=== PATIENT | male | born 1965 | race Caucasian/White ===

== ENCOUNTER 2019-01-08 11:18 | Outpatient (RCR) | payer SELFPAY | END 2019-02-06 00:01 | LOC: LAB 11:18 | DX: L02.31 Cutaneous abscess of buttock (principal) | CPT/HCPCS: 80053; 85007; 85027 ==

== ENCOUNTER 2019-10-30 10:43 | Outpatient (CLI) | payer OTHER, SELFPAY ==
--- NOTE | 2019-10-30 11:19 | XR_ITS ---
WS: [id number] HIP WITH PELVIS RIGHT TECHNIQUE: 3 views of the right hip with pelvis CLINICAL INFORMATION: R HIP PAIN COMPARISON: None. FINDINGS: Moderate degenerative arthritis right hip with joint space narrowing. Small amount of subchondral scl erosis along the superior lateral acetabulum. Normal femoral neck. No acute fractures. Visualized rig ht pubic rami are normal. XR/XR hip RT 2-3V wo/w pel* [id number] IMPRESSION: Moderate degenerative arthritis right hip. Above.
--- NOTE | 2019-10-30 11:19 | XR_ITS ---
WS: [id number] CERVICAL SPINE TECHNIQUE: 3 views of the cervical spine CLINICAL INFORMATION: CERVICAL PAIN COMPARISON: None. FINDINGS: Straightening with reversal the normal cervical lordosis. Prior postoperative changes posterior eleme nt wire fixation at C4-5. Anterior wedging at C5 and C6. Spondylitic changes worse at C5-C6 and C6-C7 anterior hypertrophic changes and disc space narrowing. Bony fusion at C3-C4 and C4-C5. Lung apices are well aerated. Normal C1-2 articulation. Normal lateral masses. XR/XR cervical spine 3V* [id number] IMPRESSION: 1. Straightening with reversal the normal cervical lordosis. 2. Moderate spondylitic changes. 3. Bony fusion C3-C4 and C4-C5 with posterior element fixation wire at C4-5.
--- NOTE | 2019-10-30 11:19 | XR_ITS ---
WS: [id number] SHOULDER RIGHT TECHNIQUE: 3 views of the right shoulder CLINICAL INFORMATION: R SHOULDER PAIN COMPARISON: None. FINDINGS: Mild degenerative arthritis at the AC joint. Narrowing of the subacromial space. Moderate downsloping of the acromion. Mild degenerative arthritis involving the glenohumeral joint with subchondral cysti c change involving the greater tuberosity. No acute fractures. Right lung is well aerated.. XR/XR shoulder RT min 2V* [id number] IMPRESSION: Mild degenerative arthritis right shoulder described above
== END 2019-10-30 10:44 | disposition home or self-care (01) ==
LOC: RAD 10:56
PROVIDERS: Visit Provider Dermatology
DX: M19.011 Primary osteoarthritis, right shoulder (principal); M16.11 Unilateral primary osteoarthritis, right hip; M43.22 Fusion of spine, cervical region
CPT/HCPCS: 72040; 73030; 73502